=== PATIENT | female | born 1935 | race Caucasian/White ===

== ENCOUNTER 2018-03-06 10:47 | Inpatient (IN) | payer BC ==
[~2018-03-06] VITALS: Ht 165.1 cm; Wt 58.3 kg
[2018-03-06] MEDS ORDERED: IV NS 0.9% 1,000 ML BAG IV ONE (11:00)
[2018-03-06 11:07] LABS: BASOPHILS # (AUTO) 0.1 /CMM (0.0-0.2); BASOPHILS % (AUTO) 0.9 % (0.0-2.0); EOSINOPHILS % (AUTO) 2.7 % (0.0-6.0); HEMATOCRIT 47 % (33-45); HEMOGLOBIN 15.8 g/dL (11.5-14.8); LYMPHOCYTES # (AUTO) 2.8 /CMM (0.8-4.8); LYMPHOCYTES % (AUTO) 39.5 % (20.0-44.0); MEAN CORPUSCULAR HGB CONC 34 g/dl (31.0-36.0); MEAN CORPUSCULAR VOLUME 98 fL (82-100); MONOCYTES % (AUTO) 14.4 % (2.0-12.0); NEUTROPHILS # (AUTO) 3.1 /CMM (1.8-8.9); NEUTROPHILS % (AUTO) 42.5 % (43.0-81.0); PLATELET COUNT (AUTO) 199 /CMM (150-450); RED BLOOD CELL COUNT(AUTO) 4.75 MIL/uL (4.0-5.2); WHITE BLOOD COUNT (AUTO) 7.2 K/uL (4.3-11.0)
--- NOTE | 2018-03-06 11:15 | NUR ---
patient bib ra from home due to weakness, patient is alert and oriented x 2, confused at times. on 02 @ 3lpm via nc saturation of 95%, in no apparent distress noted. connected to the monitor, and pulse ox, kept comfortable, will continue to monitor accordingly.
--- NOTE | 2018-03-06 11:20 | NUR ---
URINE COLLECTED AND SENT TO LAB.
[2018-03-06 11:21] LABS: APPEARANCE,URINE Slightly Cloudy (CLEAR); BILIRUBIN,URINE Negative (NEGATIVE); BLOOD, URINE Negative Ery/uL (NEGATIVE); COLOR,URINE Yellow (YELLOW); KETONES,URINE Negative (NEGATIVE); LEUKOCYTE ESTERASE ,URINE Negative (NEGATIVE); NITRITE, URINE Negative (NEGATIVE); PROTEIN,URINE Negative (NEGATIVE); UGLUCOSE Negative (NEGATIVE); UROBILINOGEN,URINE 0.2 EU/dL (0.2)
--- NOTE | 2018-03-06 11:23 | NUR ---
MAIL COURIER AT BEDSIDE FOR X-RAY.
[2018-03-06 11:25] LABS: ALANINE AMINOTRANSFERASE 28 U/L (12-78); ALBUMIN 3.2 g/dL (3.4-5.0); ALKALINE PHOSPHATASE 75 U/L (46-116); ASPARTATE AMINOTRANSFERASE 46 U/L (15-37); BILIRUBIN,DIRECT 0.3 mg/dL (0.0-0.2); BILIRUBIN,TOTAL 1.6 mg/dL (0.2-1.0); CARBON DIOXIDE 29 mmol/L (21-32); CHLORIDE 101 mmol/L (98-107); CREATININE 1.8 mg/dL (0.6-1.3); GLUCOSE 109 mg/dL (74-106); POTASSIUM 3.2 mmol/L (3.5-5.1); TOTAL PROTEIN, SERUM 7.4 g/dL (6.4-8.2); UREA NITROGEN, BLOOD 21 mg/dL (7-18)
[2018-03-06] MEDS ORDERED: FURO-145 PO (11:32)
[2018-03-06] MEDS ORDERED: PRAV10TA40 PO (11:32)
[2018-03-06] MEDS ORDERED: METO-356 PO (11:32)
[2018-03-06] MEDS ORDERED: LEVO150T PO (11:32)
[2018-03-06] MEDS ORDERED: MEXI200C PO (11:32)
[2018-03-06] MEDS ORDERED: CYCL30DR EACHEYE (11:32)
[2018-03-06] MEDS ORDERED: UBID50TA3 PO (11:32)
[2018-03-06] MEDS ORDERED: METO5TAB7 PO (11:32)
[2018-03-06] MEDS ORDERED: ASPI-1169 PO (11:32)
[2018-03-06] MEDS ORDERED: URSO300C12 PO (11:32)
[2018-03-06] MEDS ORDERED: APIX2.5T PO (11:32)
[2018-03-06] MEDS ORDERED: AMIO200T4 PO (11:32)
[2018-03-06] MEDS ORDERED: MULT-24 PO (11:32)
[2018-03-06 11:36] LABS: SODIUM SERUM 138 mmol/L (136-145)
[2018-03-06] MEDS ORDERED: POTASSIUM CHLORIDE 20 MEQ TAB.PRT.SR PO ONE ×2 (12:00→12:01)
--- NOTE | 2018-03-06 12:32 | NUR ---
got bed 323-1 tele
--- NOTE | 2018-03-06 12:59 | NUR ---
REPORT GIVEN TO JESSI STEVE FOR SAM.
[2018-03-06 13:40] VITALS: BP 101/54
--- NOTE | 2018-03-06 13:40 | NUR ---
PHARMACY SALES REPRESENTATIVEPOUND KEEPER NOTE RECEIVED PT GIVE JOSE ACCOMPANIED BY ER STAFF IN STABLE CONDITION. PT IS A/O X2, AFEBRILE. PT APPEARS TO BE A BIT CONFUSED. RESPIRATIONS ARE EVEN AND UNLABORED, NOT IN ANY ACUTE DISTRESS NOTED. PUPILS ARE REACTIVE TO LIGHT, BILATERAL HAND LINING FINISHER ARE STRONG AND EQUAL. DTR AND CAREGIVER AT BEDSIDE. PT DENIES ANY PAIN AT THIS TIME, NO C/O SOB, N/V. IV SITE TO LAC/RFA G18 INTACT, NO INFILTRATION NOTED. DRESSING KEPT CLEAN AND DRY. DISCOLORATIONS NOTED TO DEYSI AND EBER, PICTURES TAKEN AND PLACED IN CHART. ALL BELONGINGS ACCOUNTED FOR. GUS TRUJILLO MADE AWARE OF ADMISSION. INSTRUCTED PT TO USE CALL LIGHT WHEN ASSISTANCE IS NEEDED, CALL LIGHT IS LEFT WITHIN REACH. WILL MONITOR FOR CONTINUITY OF CARE.
--- NOTE | 2018-03-06 13:45 | NUR ---
transferred patient going to room 323-1 T via acls protocol in no apparent distress noted.
[2018-03-06] MEDS ORDERED: MAG HYDROX/AL HYDROX/SIMETH 30 ML UDC PO PRN (14:00)
[2018-03-06] MEDS ORDERED: PRAVASTATIN SODIUM 20 MG TABLET PO SCH (14:00)
[2018-03-06] MEDS ORDERED: TEMAZEPAM 15 MG CAPSULE PO PRN (14:00)
[2018-03-06] MEDS ORDERED: ONDANSETRON HCL/PF 4 MG/2 ML VIAL IVP PRN (14:00)
[2018-03-06] MEDS ORDERED: ACETAMINOPHEN 325 MG TABLET PO PRN (14:00)
[2018-03-06] MEDS ORDERED: MAGNESIUM HYDROXIDE 30 ML UDC PO PRN (14:00)
[2018-03-06 16:00] VITALS: BP 99/66
[2018-03-06] MEDS: PANTOPRAZOLE 40 MG TABLET.DR PO SCH (16:18)
[2018-03-06] MEDS: IV NS 0.9% 1,000 ML IV PRN (16:19)
[2018-03-06] MEDS: URSODIOL 300 MG CAPSULE PO SCH (18:06)
--- NOTE | 2018-03-06 18:29 | NUR ---
SYSTEMS ARCHITECTURE ANALYST CLOSING NOTES ALL DUE MEDS GIVEN, NEEDS MET AND ANTICIPATED. PT IS A/O X2, AFEBRILE. RESPIRATIONS ARE EVEN AND UNLABORED, NOT IN ANY ACUTE DISTRESS NOTED. NO FACIAL GRIMACING OR MOANING NOTED. NO SOB, N/V. IV SITE TO RFA/LAC INTACT, NO INFILTRATION NOTED. DRESSING KEPT CLEAN AND DRY. SAFETY MEASURES ARE IN PLACE. WILL ENDORSE TO NEXT SHIFT FOR CONTINUITY OF CARE.
--- NOTE | 2018-03-06 19:15 | NUR ---
TELE/RN OPENING NOTES PT AWAKE HOB ELEVATED. A/OX2. CAREGIVER AT BEDSIDE. ON ROOM AIR, BREATHING EVEN AND UNLABORED. NO S/S OF SOB OR ACUTE DISTRESS. DENIES PAIN. ON TELE MONITOR SHOWING AFIB / VPACING HR 70. IV TO LAC PATENT AND INTACT RUNNING IVF ORDERED. BED IN LOW/LOCKED POSITION WITH CALL LIGHT IN REACH, SIDE RAILS UPX2. WILL CONTINUE TO MONITOR
[2018-03-06 20:00] VITALS: BP 126/66
[2018-03-06] MEDS: ATORVASTATIN 10 MG TABLET PO SCH (21:37)
[2018-03-06] MEDS: AMIODARONE HCL 200 MG TABLET PO SCH (21:37)
[2018-03-06] MEDS: APIXABAN 2.5 MG TABLET PO SCH (21:44)
[2018-03-06] MEDS ORDERED: RESTASIS EYE EACHEYE SCH (22:00)
[2018-03-06] MEDS: MEXILETINE PO SCH (22:31)
[2018-03-07] VITALS: BP 116/63
[2018-03-07 04:00] VITALS: BP 108/59
--- NOTE | 2018-03-07 05:06 | NUR ---
TELE/RN NOTES LAB CALLED WITH PRELIMINARY BLOOD CX RESULT= GRAM + COCCI. NOTIFIED GUS PINA. AWAITING ORDERS.
[2018-03-07] MEDS ORDERED: VANCOMYCIN 1 GM in IV D5W 250 ML IV SCH (05:30)
[2018-03-07] MEDS ORDERED: VANCOMYCIN 1 GM in IV D5W 250 ML IV ONE (05:30)
[2018-03-07] MEDS ORDERED: VANCOMYCIN 1 GM VIAL ONE (05:51)
[2018-03-07] MEDS: IV NS 0.9% 1,000 ML IV PRN (06:07)
--- NOTE | 2018-03-07 07:00 | NUR ---
TELE/RN CLOSING NOTES PT RESTING COMFORTABLY IN BED. A/OX2. CAREGIVER AT BEDSIDE. ON ROOM AIR, BREATHING EVEN AND UNLABORED. NO S/S OF SOB OR PAIN. ON TELE MONITOR SHOWING AFIB / VPACING HR 60-70'S. IV TO LAC PATENT AND INTACT RUNNING IVF ORDERED. NO SIGNIFICANT CHANGES OVERNIGHT. ALL NEEDS MET. BED IN LOW/LOCKED POSITION WITH CALL LIGHT IN REACH, SIDE RAILS UPX2. ENDORSED TO DAY SHIFT RN SAM.
--- NOTE | 2018-03-07 07:30 | NUR ---
RN OPENING NOTES RECEIVED PT. PT IS STABLE AND RESTING IN BED. A/O X 3. NO S/S OF RESP DISTRESS/SOB. NO C/O PAIN AT THIS TIME. CAREGIVER AT BEDSIDE. TELE MONITOR IN PLACE, READING SINUS RYAN AT 54 BPM. PT STARTED ON IV VANCOMYCIN D/T POSITIVE GRAM COCCI FOUND IN BLOOD. SAFETY MEASURES IN PLACE, CALL LIGHT WITHIN REACH. WILL CONTINUE TO MONITOR.
[2018-03-07 07:34] LABS: BASOPHILS # (AUTO) 0.1 /CMM (0.0-0.2); BASOPHILS % (AUTO) 1.1 % (0.0-2.0); EOSINOPHILS % (AUTO) 3.7 % (0.0-6.0); HEMATOCRIT 41 % (33-45); HEMOGLOBIN 13.5 g/dL (11.5-14.8); LYMPHOCYTES % (AUTO) 33.7 % (20.0-44.0); MEAN CORPUSCULAR HGB CONC 33 g/dl (31.0-36.0); MEAN CORPUSCULAR VOLUME 98 fL (82-100); MONOCYTES % (AUTO) 16.2 % (2.0-12.0); NEUTROPHILS # (AUTO) 2.7 /CMM (1.8-8.9); NEUTROPHILS % (AUTO) 45.3 % (43.0-81.0); PLATELET COUNT (AUTO) 145 /CMM (150-450); RED BLOOD CELL COUNT(AUTO) 4.14 MIL/uL (4.0-5.2); WHITE BLOOD COUNT (AUTO) 5.9 K/uL (4.3-11.0)
[2018-03-07 07:44] LABS: CARBON DIOXIDE 29 mmol/L (21-32); CHLORIDE 110 mmol/L (98-107); CREATININE 1.4 mg/dL (0.6-1.3); GLUCOSE 136 mg/dL (74-106); MAGNESIUM 2.1 mg/dL (1.8-2.4); PHOSPHORUS 3.3 mg/dL (2.5-4.9); POTASSIUM 4.4 mmol/L (3.5-5.1); SODIUM SERUM 146 mmol/L (136-145); UREA NITROGEN, BLOOD 15 mg/dL (7-18)
[2018-03-07 07:59] LABS: CHOLESTEROL 221 mg/dL (<200); HDL CHOLESTEROL 65 mg/dL (40-60); LDL 146 mg/dL (0-99); THYROID STIMULATING HORMONE 0.346 uIU/mL (0.358-3.74); TRIGLYCERIDES 57 mg/dL (30-150)
[2018-03-07 08:00] VITALS: BP 135/69
[2018-03-07] MEDS ORDERED: FEE PK DOSING 1 MIN EA MC ONE (08:08)
[2018-03-07] MEDS: ASPIRIN 81 MG TAB.CHEW PO SCH (09:00)
[2018-03-07] MEDS: URSODIOL 300 MG CAPSULE PO SCH ×2 (09:06→17:34)
[2018-03-07] MEDS: LEVOTHYROXINE SODIUM 75 MCG TABLET PO SCH (09:06)
[2018-03-07] MEDS: PANTOPRAZOLE 40 MG TABLET.DR PO SCH (09:06)
[2018-03-07] MEDS: MULTIVITAMINS,THERAGRAN 1 UDTAB TABLET PO SCH (09:06)
[2018-03-07] MEDS: MEXILETINE PO SCH ×2 (09:12→21:00)
[2018-03-07] MEDS: AMIODARONE HCL 200 MG TABLET PO SCH ×2 (09:13→21:00)
[2018-03-07] MEDS: METOPROLOL SUCCINATE 25 MG TAB.SR.24H PO SCH (09:16)
[2018-03-07 09:19] LABS: EOSINOPHILS % (MANUAL) 3 % (0-4); LYMPHOCYTES % (MANUAL) 34 % (16-48); MONOCYTES % (MANUAL) 12 % (0-11.0); NEUTROPHILS % (MANUAL) 51 (42-76)
[2018-03-07] MEDS: APIXABAN 2.5 MG TABLET PO SCH ×2 (09:25→22:46)
[2018-03-07 16:00] VITALS: BP 109/55
[2018-03-07] MEDS: ENSURE ENLIVE 237 ML LIQUID (VANILLA) PO SCH (17:00)
--- NOTE | 2018-03-07 18:58 | NUR ---
RN CLOSING NOTE PT IN BED RESTING. NO S/S OF RESP DISTRESS/SOB. NO C/O PAIN AT THIS TIME. ALL PT NEEDS ANTICIPATED AND MET. SAFETY MEASURES IN PLACE, CALL LIGHT WITHIN REACH. WILL ENDORSE TO NURSING INFORMATICS SPECIALIST FOR SAM.
--- NOTE | 2018-03-07 19:10 | NUR ---
MS/RN NOTES RECEIVED PT. LYING IN BED. PT. IS A&O X2-3 WITH PERIODS OF CONFUSION NOTED. BREATHING EVEN AND UNLABORED ON 3LPM O2 VIA NC. NO SOB, RESPIRATORY DISTRESS OR COMPLAINTS OF PAIN NOTED AT THIS TIME. PT. WITH RIGHT FOREARM 20 GAUGE IV SALINE LOCK PRESENT, PATENT AND INTACT. PT. WITH LEFT AC 18 GAUGE IV SALINE LOCK PRESENT, PATENT AND INTACT. PT. WITH CAREGIVER PRESENT AT BEDSIDE. BED LOCKED AND IN LOWEST POSITION, SIDE RAILS UP X3, BED ALARM ON, CALL LIGHT WITHIN REACH, WILL CONTINUE TO MONITOR.
[2018-03-07 20:00] VITALS: BP 103/45
[2018-03-07] MEDS ORDERED: TEMAZEPAM 7.5 MG CAPSULE PO PRN (22:00)
[2018-03-07] MEDS: ATORVASTATIN 10 MG TABLET PO SCH (22:46)
[2018-03-08] MEDS: VANCOMYCIN 0.75 GM in IV D5W 250 ML IV SCH ×2 (00:06→18:41)
--- NOTE | 2018-03-08 06:15 | NUR ---
MS/RN NOTES PT. IS LYING IN BED RESTING. BREATHING EVEN AND UNLABORED ON 3LPM O2 VIA NC. NO SOB, RESPIRATORY DISTRESS OR COMPLAINTS OF PAIN NOTED AT THIS TIME. PT. WITH RIGHT FOREARM 20 GAUGE IV SALINE LOCK PRESENT, PATENT AND INTACT. ALL PT. NEEDS MET. PT. WITH CAREGIVER PRESENT AT BEDSIDE. BED LOCKED AND IN LOWEST POSITION, SIDE RAILS UP X3, BED ALARM ON, CALL LIGHT WITHIN REACH, WILL ENDORSE TO DAYSHIFT NURSE FOR CONTINUITY OF CARE.
[2018-03-08 07:09] LABS: BASOPHILS # (AUTO) 0.1 /CMM (0.0-0.2); BASOPHILS % (AUTO) 0.9 % (0.0-2.0); EOSINOPHILS % (AUTO) 3.8 % (0.0-6.0); HEMATOCRIT 40 % (33-45); HEMOGLOBIN 13.3 g/dL (11.5-14.8); LYMPHOCYTES # (AUTO) 2.1 /CMM (0.8-4.8); LYMPHOCYTES % (AUTO) 34.3 % (20.0-44.0); MEAN CORPUSCULAR HGB CONC 33 g/dl (31.0-36.0); MEAN CORPUSCULAR VOLUME 97 fL (82-100); MONOCYTES % (AUTO) 16.9 % (2.0-12.0); NEUTROPHILS # (AUTO) 2.7 /CMM (1.8-8.9); NEUTROPHILS % (AUTO) 44.1 % (43.0-81.0); PLATELET COUNT (AUTO) 121 /CMM (150-450); RED BLOOD CELL COUNT(AUTO) 4.12 MIL/uL (4.0-5.2); WHITE BLOOD COUNT (AUTO) 6.1 K/uL (4.3-11.0)
[2018-03-08 07:26] LABS: CALCIUM, SERUM 8.6 mg/dL (8.5-10.1); CARBON DIOXIDE 29 mmol/L (21-32); CHLORIDE 107 mmol/L (98-107); CREATININE 1.1 mg/dL (0.6-1.3); GLUCOSE 81 mg/dL (74-106); POTASSIUM 3.3 mmol/L (3.5-5.1); SODIUM SERUM 143 mmol/L (136-145); UREA NITROGEN, BLOOD 19 mg/dL (7-18)
[2018-03-08 08:00] VITALS: BP 117/63
--- NOTE | 2018-03-08 10:00 | NUR ---
LT. ARM IV REMOVED PT. STATES HURTS.
[2018-03-08] MEDS ORDERED: POTASSIUM CHLORIDE 20 MEQ POWDER PACKET PO ONE (11:00)
[2018-03-08] MEDS: AMIODARONE HCL 200 MG TABLET PO SCH ×2 (11:30→21:00)
[2018-03-08] MEDS: METOPROLOL SUCCINATE 25 MG TAB.SR.24H PO SCH (11:40)
[2018-03-08] MEDS: PANTOPRAZOLE 40 MG TABLET.DR PO SCH (11:54)
[2018-03-08] MEDS: MULTIVITAMINS,THERAGRAN 1 UDTAB TABLET PO SCH (11:54)
[2018-03-08] MEDS: LEVOTHYROXINE SODIUM 75 MCG TABLET PO SCH (11:54)
[2018-03-08] MEDS: APIXABAN 2.5 MG TABLET PO SCH ×2 (11:55→21:29)
[2018-03-08] MEDS: ASPIRIN 81 MG TAB.CHEW PO SCH (11:55)
[2018-03-08] MEDS: URSODIOL 300 MG CAPSULE PO SCH ×2 (11:55→18:41)
[2018-03-08] MEDS: ENSURE ENLIVE 237 ML LIQUID (VANILLA) PO SCH ×2 (12:12→18:42)
[2018-03-08] MEDS: MEXILETINE PO SCH ×2 (12:12→21:39)
[2018-03-08 16:00] VITALS: BP 98/56
--- NOTE | 2018-03-08 18:00 | NUR ---
KLOR CON POWDER FOR LOW POTASSIUM GIVEN.FAMILY CAREGIVER HERE MOST OF DAY.
--- NOTE | 2018-03-08 19:57 | NUR ---
RN MS OPENING NOTES RECEIVED PT IN BED SLEEPING, EASILY AROUSED TO TOUCH OR NAME CALL, CAREGIVER AT BEDSIDE, BREATHING EVEN AND UNLABORED ON ROOM AIR. IN NO APPARENT DISTRESS AT THE MOMENT. IV ACCESS ON THE R FA#20SL PATENT AND FLUSHING. BED IN LOWEST LOCKED POSITION, CALL LIGHT WITHIN REACH AT ALL TIME, WILL CONTINUE TO MONITOR
[2018-03-08 20:00] VITALS: BP 93/39
[2018-03-08] MEDS: ATORVASTATIN 10 MG TABLET PO SCH (21:28)
[2018-03-09 04:06] VITALS: BP 93/39
--- NOTE | 2018-03-09 06:05 | NUR ---
RN MS CLOSING NOTES PT REMAINS IN BED SLEEPING, EASILY AROUSED TO TOUCH OR NAME CALL, CAREGIVER AT BEDSIDE, BREATHING EVEN AND UNLABORED ON ROOM AIR. IN NO APPARENT DISTRESS AT THE MOMENT. IV ACCESS ON THE R FA#20G TKO PATENT AND FLUSHING. IN NO APPARENT DISTRESS AT THE MOMENT. ALL NEEDS ATTENDED TO. BED IN LOWEST LOCKED POSITION, CALL LIGHT WITHIN REACH AT ALL TIME, WILL ENDORSE TO DAY NURSE FOR SAM.
--- NOTE | 2018-03-09 07:15 | NUR ---
MS RN OPENING NOTE RECEIVED PATIENT IN BED, SLEEPING, EASILY AROUSED WITH VERBAL STIMULI. ORIENTED X2. ON ROOM AIR TOLERATING WELL. IN NO APPARENT DISTRESS OR DISCOMFORT AT THIS TIME. RESPIRATIONS EVEN AND UNLABORED. RIGHT FA 20 G IVC SL, PATENT AND INTACT. PATIENT HAS CAREGIVER AT BEDSIDE .KEPT CLEAN AND COMFORTABLE. ALL NEEDS ATTENDED, SAFETY MEASURES IN PLACE, BED IN LOW LOCKED POSITION, SIDE RAILS UP X2, CALL LIGHT WITHIN EASY REACH. WILL CONTINUE TO MONITOR.
[2018-03-09 07:30] LABS: BASOPHILS # (AUTO) 0.1 /CMM (0.0-0.2); BASOPHILS % (AUTO) 0.9 % (0.0-2.0); EOSINOPHILS % (AUTO) 4.4 % (0.0-6.0); HEMATOCRIT 38 % (33-45); LYMPHOCYTES # (AUTO) 1.9 /CMM (0.8-4.8); LYMPHOCYTES % (AUTO) 33.1 % (20.0-44.0); MEAN CORPUSCULAR HGB CONC 34 g/dl (31.0-36.0); MEAN CORPUSCULAR VOLUME 97 fL (82-100); MONOCYTES % (AUTO) 17.5 % (2.0-12.0); NEUTROPHILS # (AUTO) 2.5 /CMM (1.8-8.9); NEUTROPHILS % (AUTO) 44.1 % (43.0-81.0); PLATELET COUNT (AUTO) 125 /CMM (150-450); RED BLOOD CELL COUNT(AUTO) 3.95 MIL/uL (4.0-5.2); WHITE BLOOD COUNT (AUTO) 5.8 K/uL (4.3-11.0)
[2018-03-09 07:38] LABS: CALCIUM, SERUM 8.6 mg/dL (8.5-10.1); CARBON DIOXIDE 29 mmol/L (21-32); CHLORIDE 109 mmol/L (98-107); CREATININE 1.2 mg/dL (0.6-1.3); GLUCOSE 81 mg/dL (74-106); POTASSIUM 3.9 mmol/L (3.5-5.1); SODIUM SERUM 144 mmol/L (136-145); UREA NITROGEN, BLOOD 22 mg/dL (7-18)
[2018-03-09 08:00] VITALS: BP 121/55
[2018-03-09] MEDS ORDERED: SULF1TAB48 PO (08:39)
[2018-03-09] MEDS: APIXABAN 2.5 MG TABLET PO SCH (08:41)
[2018-03-09] MEDS: URSODIOL 300 MG CAPSULE PO SCH (08:41)
[2018-03-09] MEDS: MEXILETINE PO SCH (08:42)
[2018-03-09] MEDS: ASPIRIN 81 MG TAB.CHEW PO SCH (08:42)
[2018-03-09] MEDS: AMIODARONE HCL 200 MG TABLET PO SCH (08:42)
[2018-03-09] MEDS: LEVOTHYROXINE SODIUM 75 MCG TABLET PO SCH (08:42)
[2018-03-09] MEDS: MULTIVITAMINS,THERAGRAN 1 UDTAB TABLET PO SCH (08:42)
[2018-03-09 08:43] VITALS: BP 120/70
[2018-03-09] MEDS: METOPROLOL SUCCINATE 25 MG TAB.SR.24H PO SCH (08:43)
[2018-03-09] MEDS: PANTOPRAZOLE 40 MG TABLET.DR PO SCH (08:43)
[2018-03-09] MEDS: ENSURE ENLIVE 237 ML LIQUID (VANILLA) PO SCH (08:43)
--- NOTE | 2018-03-09 11:00 | NUR ---
PATIENT REFUSED BLOOD DRAW FOR VANCO TROUGH. NOTIFIED MD. PATIENT IS BEING DC-ED HOME TODAY. OK TO NON-ADMIN VANCO. NOTED AND CARRIED OUT.
[2018-03-09] MEDS: VANCOMYCIN 0.75 GM in IV D5W 250 ML IV SCH (12:00)
--- NOTE | 2018-03-09 14:20 | NUR ---
MS FOLLOW UP REP NOTE RECEIVED ORDER FOR DISCHARGE BY DR. FLORENTINO. PATIENT IS BEING DISCHARGE HOME WITH CARE OF CAREGIVER. PATIENT IS ALERT ORIENTED X2, FORGETFUL. MEDICALLY STABLE, VITAL SIGNS STABLE. IN NO APPARENT DISTRESS OR DISCOMFORT AT THIS TIME. RESPIRATIONS EVEN AND UNLABORED. JANET PAIN AND SOB. DISCHARGE PREPARED VIA EXITCARE. EDUCATION PROVIDED TO THE CAREGIVER AND THE PATIENT REGARDING DIAGNOSIS, NEW AND EXISTING MEDICATION. FOLLOW UP CARE INSTRUCTIONS REVIEWED. APPOINTMENT MADE WITH PRIMARY CARE PHYSICIAN AND WAS DOCUMENTED IN DISCHARGE PAPERWORK. PATIENT'S CAREGIVER VERBALIZED UNDERSTANDING OF ALL THE INSTRUCTIONS. VALUABLES CHECKED AND ACCOUNTED FOR, MEDICATIONS RETURNED TO THE PATIENT UPON DISCHARGE. ALL PAPERWORK SIGNED COPIES MADE PLACED IN CHART. PATIENT REFUSED VACCINATIONS, RISKS AND BENEFITS EXPLAINED. PATIENT SKIN ASSESSMENT WAS DONE IN THE MORNING, INTACT, HOWEVER, PATIENT REFUSED PICTURES UPON DISCHARGE SHE WAS VERY ANXIOUS TO GO HOME. IV SITE REMOVED, TIP INTACT. ID BANDS REMOVED. PATIENT LEFT THE UNIT ON HER OWN WHEELCHAIR ACCOMPANIED BY TWO CAREGIVERS AND SO SONI AT 1420.
== END 2018-03-09 14:21 | disposition home health service (06) | DRG 871 ==
LOC: ER 10:48 → TELE 13:27 → MED 03-07 10:17
PROVIDERS: ADMIT Nurse Practitioner Acute Care; ATTEND Family Medicine
DX: A41.9 Sepsis, unspecified organism (principal); N17.0 Acute kidney failure with tubular necrosis; I13.0 Hypertensive heart and chronic kidney disease with heart failure and stage 1 through stage 4 chronic kidney disease, or unspecified chronic kidney disease; E44.0 Moderate protein-calorie malnutrition; E87.2 Acidosis; I50.22 Chronic systolic (congestive) heart failure; E86.0 Dehydration; E78.5 Hyperlipidemia, unspecified; E03.9 Hypothyroidism, unspecified; N18.9 Chronic kidney disease, unspecified; I48.2 Chronic atrial fibrillation; I25.10 Atherosclerotic heart disease of native coronary artery without angina pectoris; E87.6 Hypokalemia; F03.90 Unspecified dementia, unspecified severity, without behavioral disturbance, psychotic disturbance, mood disturbance, and anxiety; Z87.440 Personal history of urinary (tract) infections; Z95.810 Presence of automatic (implantable) cardiac defibrillator; E88.09 Other disorders of plasma-protein metabolism, not elsewhere classified; Z68.21 Body mass index [BMI] 21.0-21.9, adult; Z95.1 Presence of aortocoronary bypass graft; R55 Syncope and collapse; E86.1 Hypovolemia; M62.50 Muscle wasting and atrophy, not elsewhere classified, unspecified site; Z79.899 Other long term (current) drug therapy; T50.2X5A Adverse effect of carbonic-anhydrase inhibitors, benzothiadiazides and other diuretics, initial encounter; Y92.009 Unspecified place in unspecified non-institutional (private) residence as the place of occurrence of the external cause
CPT/HCPCS: 36415; 71045-TC; 80048-TC; 80061-TC; 80076-TC; 81000-TC; 83605-TC; 83735-TC; 84100-TC; 84443-TC; 84484-TC; 85025-TC; 85730-TC; 87040-TC; 87081-TC; 87086-TC; 93307-TC; 97110-TC; 97116-TC; 97530-TC; G0378; J3370; J7030; J7060